=== PATIENT | male | born 1985 | race Caucasian/White ===

== ENCOUNTER 2023-08-20 10:16 | Day surgery (SDC) | payer OTHER ==
[~2023-08-20] VITALS: Ht 172.7 cm; Wt 90.8 kg
[~2023-08-20 10:16] MED LIST: DULO-34 PO; NEUR300C PO; VITMTA PO; XALA0.007 OU; ceFAZolin SOD 2 GM in IV 1 EA IV ONE
[2023-08-20] MEDS ORDERED: LR 1,000 ML IV SCH ×2 (10:35→15:35)
[2023-08-20] MEDS ORDERED: ROCURONIUM BROMIDE 50MG/5ML VIAL As Ordered ONE (10:55)
[2023-08-20] MEDS ORDERED: MIDAZOLAM INJ 2MG/2ML VIAL As Ordered ONE (10:55)
[2023-08-20] MEDS ORDERED: fentaNYL 250 MCG/5 ML INJECTION As Ordered ONE (10:55)
[2023-08-20] MEDS ORDERED: LIDOCAINE 2% 100MG/5ML SDV (FOR ANES.) As Ordered ONE (10:55)
[2023-08-20] MEDS ORDERED: propofoL 200 MG/20 ML VIAL As Ordered ONE (10:55)
[2023-08-20] MEDS ORDERED: LACRILUBE (AKWA TEARS) OPHTH OINT 3.5GM As Ordered ONE (10:59)
[2023-08-20] MEDS ORDERED: TRANEXAMIC ACID 100 MG/ML 10ML VIAL As Ordered ONE ×2 (11:50→14:54)
[2023-08-20] MEDS ORDERED: VANCOMYCIN 1000MG/20ML VIAL As Ordered ONE (11:50)
[2023-08-20] MEDS ORDERED: LIDOCAINE 1% SDV 30ML VIAL As Ordered ONE (11:50)
[2023-08-20] MEDS ORDERED: EPINEPHrine INJ 1 MG/ML 1ML AMP As Ordered ONE (11:51)
[2023-08-20] MEDS ORDERED: ROPIvacaine 0.5% 30ML VIAL PN ONE (11:55)
[2023-08-20] MEDS ORDERED: fentaNYL 100 MCG/2 ML INJECTION IV PRN ×2 (11:55→15:35)
[2023-08-20] MEDS ORDERED: dexAMETHasone 10MG/1ML VIAL PRES.FREE PN ONE (11:55)
[2023-08-20] MEDS ORDERED: LIDOCAINE 1% SDV 5ML VIAL PN ONE (11:55)
[2023-08-20] MEDS ORDERED: EPINEPHrine INJ 1 MG/ML 1ML AMP PN ONE (11:55)
[2023-08-20] MEDS: MIDAZOLAM INJ 2MG/2ML VIAL IV PRN ×2 (12:23→12:26)
[2023-08-20] MEDS ORDERED: ACETAMINOPHEN 1000MG 100ML IV BAG As Ordered ONE (13:57)
[2023-08-20] MEDS ORDERED: ONDANSETRON 4MG 2ML VIAL As Ordered ONE ×2 (13:58→16:08)
[2023-08-20] MEDS ORDERED: KETOROLAC 60MG 2ML VIAL As Ordered ONE (13:58)
[2023-08-20] MEDS ORDERED: SUGAMMADEX SODIUM 500 MG/5 ML VIAL (BRIDION) As Ordered ONE (15:25)
[2023-08-20] MEDS ORDERED: NORCO, ANEXSIA 5/325MG TABLET (HYDROcodone/ACETAMINOPHEN) PO PRN (15:35)
[2023-08-20] MEDS ORDERED: METOCLOPRAMIDE INJ 10MG/2ML VIAL IV PRN (15:35)
[2023-08-20] MEDS ORDERED: ONDANSETRON 4MG 2ML VIAL IV PRN (15:35)
[2023-08-20] MEDS ORDERED: ceFAZolin 1GM VIAL As Ordered ONE (15:51)
[2023-08-20] MEDS ORDERED: PROMETHAZINE 25MG/ML 1ML VIAL IV PRN (16:30)
[2023-08-20 18:13] VITALS: BP 126/65; TEMP 97.4; O2SAT 98
== END 2023-08-20 18:30 | disposition home or self-care (01) ==
LOC: M SDC 10:16
PROVIDERS: ATTEND Orthopaedic Surgery
DX: M75.41 Impingement syndrome of right shoulder (principal); M75.51 Bursitis of right shoulder; M19.011 Primary osteoarthritis, right shoulder; F41.9 Anxiety disorder, unspecified; M54.9 Dorsalgia, unspecified; Z88.5 Allergy status to narcotic agent; Z79.899 Other long term (current) drug therapy; F17.290 Nicotine dependence, other tobacco product, uncomplicated
CPT/HCPCS: 23120; 29823; 29826; J0131; J0171; J0690; J1100; J1885; J2250; J2405; J2765; J2795; J3010; J3370

== ENCOUNTER 2024-01-12 12:47 | Day surgery (SDC) | payer OTHER ==
[~2024-01-12] VITALS: Ht 170.2 cm; Wt 98.2 kg
[~2024-01-12 12:47] MED LIST changes: +MOTR200T44 PO; +THERTAB52 PO; -ceFAZolin SOD 2 GM in IV 1 EA IV ONE
[2024-01-12] MEDS ORDERED: LIDOCAINE 2% 100MG/5ML SDV (FOR ANES.) As Ordered ONE (12:54)
[2024-01-12] MEDS ORDERED: propofoL 200 MG/20 ML VIAL As Ordered ONE (12:54)
[2024-01-12] MEDS ORDERED: fentaNYL 100 MCG/2 ML INJECTION As Ordered ONE (12:54)
[2024-01-12] MEDS ORDERED: MIDAZOLAM INJ 2MG/2ML VIAL As Ordered ONE (12:54)
[2024-01-12] MEDS ORDERED: LR 1,000 ML IV SCH ×2 (13:15→15:15)
[2024-01-12] MEDS ORDERED: TRANEXAMIC ACID 100 MG/ML 10ML VIAL As Ordered ONE (14:03)
[2024-01-12] MEDS: ceFAZolin SOD 2 GM in IV 1 EA IV ONE (14:10)
[2024-01-12] MEDS: TRANEXAMIC ACID 100 MG/ML 10ML VIAL IV ONE (14:17)
[2024-01-12] MEDS ORDERED: ONDANSETRON 4MG 2ML VIAL As Ordered ONE (14:29)
[2024-01-12] MEDS: ROPIvacaine 0.5% 30ML VIAL As Ordered ONE (15:06)
[2024-01-12] MEDS ORDERED: HYDROMORPHONE HCL 0.5 MG/ 0.5 ML SYRINGE IV PRN (15:15)
[2024-01-12] MEDS ORDERED: fentaNYL 100 MCG/2 ML INJECTION IV PRN (15:15)
[2024-01-12] MEDS: ONDANSETRON 4MG 2ML VIAL IV PRN (15:38)
[2024-01-12] MEDS: traMADol 50 MG TAB PO ONE (15:48)
[2024-01-12 15:50] VITALS: TEMP 97.8
[2024-01-12 15:55] VITALS: BP 120/69; O2SAT 95
== END 2024-01-12 16:22 | disposition home or self-care (01) ==
LOC: M SDC 12:47
PROVIDERS: ATTEND Student in an Organized Health Care Education/Training Program
DX: M67.52 Plica syndrome, left knee (principal); M94.262 Chondromalacia, left knee; I49.8 Other specified cardiac arrhythmias; Z79.899 Other long term (current) drug therapy; Z88.5 Allergy status to narcotic agent; Z90.49 Acquired absence of other specified parts of digestive tract
CPT/HCPCS: 29875; J0690; J1100; J2250; J2405; J2795; J3010

== ENCOUNTER 2024-06-13 15:52 | Emergency (ER) | payer OTHER ==
[~2024-06-13] VITALS: Ht 172.7 cm; Wt 96.0 kg
[2024-06-13 15:53] VITALS: BP 130/80; TEMP 96.8; O2SAT 98
[2024-06-13] MEDS ORDERED: NAPR220C14 PO (16:04)
[2024-06-13 18:56] LABS: HEMATOCRIT 41.8 % (42.0-52.0); MEAN CORPUSCULAR HEMOGLOBIN 34.2 pg (27.0-33.0); MEAN CORPUSCULAR HGB CONC 35.9 g/dl (32.0-36.5); MEAN CORPUSCULAR VOLUME 95.2 fl (80.0-96.0); NEUTROPHILS % 79.3 % (36.0-66.0); PLATELET COUNT, AUTOMATED 264 10^3/uL (150-450); RED BLOOD COUNT 4.39 10^6/uL (4.30-6.10); WHITE BLOOD COUNT 11.1 10^3/uL (4.0-10.0)
[2024-06-13 18:57] LABS: BASO # 0.1 10^3/uL (0.0-0.2); BASO % 0.5 % (0.0-1.0); EOS # 0.1 10^3/uL (0.0-0.5); EOS % 1.1 % (0.0-3.0); LYMPH # 1.4 10^3/uL (1.5-5.0); LYMPH % 12.2 % (24.0-44.0); MONO # 0.7 10^3/uL (0.0-0.8); MONO % 6.5 % (2.0-8.0); NEUTROPHILS # 8.8 10^3/uL (1.5-8.5)
[2024-06-13] MEDS: NS 1,000 ML IV ONE (18:57)
[2024-06-13] MEDS: KETOROLAC 30 MG/ML 1ML VIAL IV ONE (18:58)
[2024-06-13] MEDS: ONDANSETRON 4MG 2ML VIAL IV ONE (18:58)
[2024-06-13 19:14] LABS: CALCIUM LEVEL 9.3 MG/DL (8.5-10.1); CREATININE FOR GFR 1.54 MG/DL (0.70-1.30); GLOMERULAR FILTRATION RATE 53.5 (>60); POTASSIUM SERUM 3.7 MMOL/L (3.5-5.1)
[2024-06-13] MEDS ORDERED: ONDA-282 PO (20:14)
[2024-06-13] MEDS ORDERED: FLOM0.4C39 PO (20:14)
[2024-06-13] MEDS ORDERED: KETO10TAB PO (20:14)
[2024-06-13] MEDS: TAMSULOSIN 0.4 MG CAP PO ONE (20:23)
[2024-06-13] MEDS: KETOROLAC TROMETHAMINE 10 MG TAB PO ONE (20:23)
== END 2024-06-13 20:29 | disposition home or self-care (01) ==
LOC: M ED 15:52
DX: N20.0 Calculus of kidney (principal); K76.0 Fatty (change of) liver, not elsewhere classified; Z87.442 Personal history of urinary calculi; G47.33 Obstructive sleep apnea (adult) (pediatric); F41.9 Anxiety disorder, unspecified; Z79.899 Other long term (current) drug therapy; Z88.5 Allergy status to narcotic agent
CPT/HCPCS: 74176; 80048; 81001; 85025; 96361; 96374; 96375; 99283; J1885; J2405

== ENCOUNTER 2024-06-18 14:42 | Emergency (ER) | payer OTHER ==
[~2024-06-18] VITALS: Ht 170.2 cm; Wt 97.0 kg
[2024-06-18 14:42] VITALS: BP 154/84; TEMP 98.3; O2SAT 99
[~2024-06-18 14:42] MED LIST changes: +FLOM0.4C39 PO; +KETO10TAB PO; +NAPR220C14 PO; +ONDA-282 PO
[2024-06-18 15:24] LABS: BASO % 0.5 % (0.0-1.0); EOS # 0.2 10^3/uL (0.0-0.5); HEMATOCRIT 37.9 % (42.0-52.0); HEMOGLOBIN 13.5 g/dl (13.5-17.5); LYMPH # 1.3 10^3/uL (1.5-5.0); LYMPH % 15.9 % (24.0-44.0); MEAN CORPUSCULAR HEMOGLOBIN 34.2 pg (27.0-33.0); MEAN CORPUSCULAR HGB CONC 35.6 g/dl (32.0-36.5); MEAN CORPUSCULAR VOLUME 95.9 fl (80.0-96.0); MONO # 0.7 10^3/uL (0.0-0.8); MONO % 8.3 % (2.0-8.0); NEUTROPHILS # 5.9 10^3/uL (1.5-8.5); PLATELET COUNT, AUTOMATED 211 10^3/uL (150-450); RED BLOOD COUNT 3.95 10^6/uL (4.30-6.10)
[2024-06-18] MEDS: ONDANSETRON 4MG 2ML VIAL IV ONE (15:27)
[2024-06-18] MEDS: MORPHINE 4 MG/ML 1ML VIAL IV PRN (15:27)
[2024-06-18] MEDS ORDERED: PERC5TAB12 PO (17:16)
[2024-06-18] MEDS ORDERED: MAGN296S37 PO (17:20)
[2024-06-18] MEDS ORDERED: TRAM50TA2 PO (17:25)
== END 2024-06-18 18:06 | disposition home or self-care (01) ==
LOC: M ED 14:42
DX: N20.1 Calculus of ureter (principal); Z87.442 Personal history of urinary calculi; F41.9 Anxiety disorder, unspecified; G47.30 Sleep apnea, unspecified
CPT/HCPCS: 74176; 80047; 81001; 85025; 96374; 96375; 99283; J2405

== ENCOUNTER → 2024-07-21 | Outpatient (REF) | payer OTHER ==
[~2024-07-21] MED LIST changes: +MAGN296S37 PO; +PERC5TAB12 PO; +TRAM50TA2 PO
== END ==
LOC: M SMT 16:47
PROVIDERS: ATTEND Physician Assistant
DX: N20.1 Calculus of ureter (principal)

== ENCOUNTER 2024-09-10 11:57 | Observation (INO) | payer OTHER ==
[~2024-09-10] VITALS: Ht 170.2 cm; Wt 92.3 kg
[2024-09-10] MEDS ORDERED: SEMA2.4P SC (12:10)
[2024-09-10] MEDS: ACETAMINOPHEN 325 MG TAB PO ONE (13:18)
[2024-09-10] MEDS: diazePAM 5MG TABLET PO ONE (14:04)
[2024-09-10] MEDS: KETOROLAC 30 MG/ML 1ML VIAL IM ONE (14:04)
[2024-09-10] MEDS: LIDOCAINE 5% (LIDODERM) PATCH TD ONE (14:05)
[2024-09-10] MEDS: METHOCARBAMOL 1,000 MG/10 ML VIAL IM ONE (16:22)
[2024-09-10] MEDS: methylPREDNISolone 125MG 2ML VIAL IV ONE (17:14)
[2024-09-10] MEDS: MORPHINE 4 MG/ML 1ML VIAL IV ONE (17:14)
[2024-09-10 18:36] LABS: BASO % 0.5 % (0.0-1.0); EOS # 0.1 10^3/uL (0.0-0.5); EOS % 0.9 % (0.0-3.0); HEMATOCRIT 39.5 % (42.0-52.0); HEMOGLOBIN 14.4 g/dl (13.5-17.5); LYMPH # 1.2 10^3/uL (1.5-5.0); LYMPH % 15.7 % (24.0-44.0); MEAN CORPUSCULAR HEMOGLOBIN 33.6 pg (27.0-33.0); MEAN CORPUSCULAR HGB CONC 36.5 g/dl (32.0-36.5); MEAN CORPUSCULAR VOLUME 92.1 fl (80.0-96.0); MONO # 0.4 10^3/uL (0.0-0.8); MONO % 4.7 % (2.0-8.0); NEUTROPHILS # 5.9 10^3/uL (1.5-8.5); NEUTROPHILS % 78.1 % (36.0-66.0); PLATELET COUNT, AUTOMATED 233 10^3/uL (150-450); RED BLOOD COUNT 4.29 10^6/uL (4.30-6.10); WHITE BLOOD COUNT 7.6 10^3/uL (4.0-10.0)
[2024-09-10 18:40] LABS: ERYTHROCYTE SEDIMENTATION RATE 10 mm/hr (0-15)
[2024-09-10 19:06] LABS: ALBUMIN 3.8 G/DL (3.2-5.2); ALKALINE PHOSPHATASE 64 U/L (40-129); ALT/SGPT 48 U/L (7.0-40); AST/SGOT 26 U/L (<34); BILIRUBIN,TOTAL 0.6 MG/DL (0.3-1.2); BLOOD UREA NITROGEN 16 MG/DL (9-23); CALCIUM LEVEL 8.6 MG/DL (8.5-10.1); CARBON DIOXIDE LEVEL 25 MMOL/L (20-31); CHLORIDE LEVEL 109 MMOL/L (98-107); CREATININE FOR GFR 0.86 MG/DL (0.70-1.30); GLOMERULAR FILTRATION RATE > 60.0 (>60); GLUCOSE, FASTING 90 MG/DL (60-100); SODIUM LEVEL 141 MMOL/L (136-145); TOTAL PROTEIN 6.6 G/DL (5.7-8.2)
[2024-09-10] MEDS: methocarbamoL 500 MG TAB PO ONE (23:33)
[2024-09-11 00:39] VITALS: O2SAT 97
[2024-09-11] MEDS ORDERED: GABAPENTIN 100 MG CAP PO SCH (01:05)
[2024-09-11] MEDS ORDERED: NALOXONE INJ 0.4MG/1ML VIAL IV PRN (01:10)
[2024-09-11] MEDS ORDERED: MORPHINE 2 MG/ML 1ML VIAL IV PRN ×2 (01:10)
[2024-09-11] MEDS ORDERED: ACETAMINOPHEN 325 MG TAB PO PRN (01:10)
[2024-09-11] MEDS ORDERED: methocarbamoL 750 MG TAB PO PRN (01:10)
[2024-09-11] MEDS ORDERED: DICL100G10 TOP (01:11)
[2024-09-11] MEDS ORDERED: CELLOPD OU (01:11)
[2024-09-11] MEDS ORDERED: DULO30CA9 PO (01:11)
[2024-09-11] MEDS ORDERED: REFR0.1D OU (01:11)
[2024-09-11] MEDS ORDERED: OMEP-173 PO (01:11)
[2024-09-11] MEDS ORDERED: SILD25TA2 PO (01:11)
[2024-09-11] MEDS ORDERED: HOME MED LIST COMPLETE! XX SCH (01:15)
[2024-09-11] MEDS: MORPHINE 4 MG/ML 1ML VIAL IV ONE (01:29)
[2024-09-11] MEDS ORDERED: POLYVINYL ALCOHOL OPHTH SOLN 15ML (LIQUITEARS) OU PRN (01:40)
[2024-09-11] MEDS ORDERED: MAALOX 30 ML SUSP *UDC PO PRN (01:45)
[2024-09-11] MEDS ORDERED: MOM 30ML SUSPENSION UDC PO PRN (01:45)
[2024-09-11] MEDS: methylPREDNISolone 125MG 2ML VIAL IV SCH (02:31)
[2024-09-11] MEDS: KETOROLAC 30 MG/ML 1ML VIAL IV SCH (02:35)
[2024-09-11] MEDS: OMEPRAZOLE 20MG CAP PO SCH (08:28)
[2024-09-11] MEDS: DOCUSATE SODIUM 100MG CAPSULE PO SCH (08:28)
[2024-09-11] MEDS: ENOXAPARIN 40MG/0.4ML SYRINGE (J1650 PER 10MG) SC SCH (08:29)
[2024-09-11] MEDS: LIDOCAINE 5% (LIDODERM) PATCH TD SCH (08:29)
[2024-09-11] MEDS: DULoxetine 30MG CAPSULE (CYMBALTA) PO SCH (08:29)
[2024-09-11] MEDS ORDERED: MEDR4PAK PO (10:23)
[2024-09-11] MEDS ORDERED: METH-1165 PO (10:26)
[2024-09-11] MEDS: LATANOPROST 0.005% OPHTH SOLN 2.5 ML OU SCH (11:41)
[2024-09-11] MEDS: SENOKOT S TAB PO SCH (11:41)
[2024-09-11 12:17] VITALS: BP 124/63; TEMP 97.4; O2SAT 97
[2024-09-11] MEDS ORDERED: GABAPENTIN 300 MG CAP PO SCH (21:00)
== END 2024-09-11 12:21 | disposition home or self-care (01) ==
LOC: M ED 11:57 → M ED INP 09-11 01:42
PROVIDERS: ADMIT Student in an Organized Health Care Education/Training Program; ATTEND Student in an Organized Health Care Education/Training Program
DX: M51.26 Other intervertebral disc displacement, lumbar region (principal); M48.061 Spinal stenosis, lumbar region without neurogenic claudication; M62.830 Muscle spasm of back; Z98.890 Other specified postprocedural states; Z72.0 Tobacco use; Z88.5 Allergy status to narcotic agent; Z79.899 Other long term (current) drug therapy
CPT/HCPCS: 72131; 72148; 80053; 81001; 85025; 85652; 86140; 96372; 96374; 96375; 96376; 97161; 99284; J1650; J1885; J2800; J2919